=== PATIENT | male | born 1975 | race Caucasian/White ===

== ENCOUNTER → 2016-08-30 | Emergency (ER) | payer BC, OTHER ==
[~2016-08-30] MED LIST: ADVIL200 MG PO; LANTUS (IN100 UNIT/M SUB-Q; NOVOLOG100 UNIT/M SUB-Q; PROZAC20 MG PO
== END | disposition disaster alternative care site (69) ==
LOC: GAMB 19:08
DX: R45.851 Suicidal ideations (principal)

== ENCOUNTER → 2016-12-15 | Outpatient (CLI) | payer BC | END | disposition disaster alternative care site (69) | LOC: GDIC 09:27 | DX: E10.9 Type 1 diabetes mellitus without complications (principal) | CPT/HCPCS: G0108 ==